=== PATIENT | female | born 1950 | race Caucasian/White ===

== ENCOUNTER 2023-10-03 10:02 | Emergency (ER) | payer MEDICARE, OTHER, SELFPAY ==
--- NOTE | ~2023-10-03 | CT_ITS ---
EXAMINATION: CT HEAD WITHOUT CONTRAST CLINICAL INFORMATION: Intermittent left-sided facial droop COMPARISON: None available. TECHNIQUE: Contiguous axial imaging was performed from the skull base to vertex without intravenous administration of contrast. This CT examination was performed using dose optimization techniques as appropriate, variously including the following: *Automated exposure control *Adjustment of mA and/or kV according to patient size (this includes techniques or standardized protocols for targeted exams where dose is matched to indication/reason for exam; i.e. extremities or head) *Use of iterative reconstruction technique DLP: 533.03 mGy-cm FINDINGS: Ventricles, sulci and cisterns are normal for the patient's age. There is no midline shift, no abnormal intra- or extra- axial fluid accumulation. Tee and white matter differentiation is normal. Bone window images show no evidence of skull fracture. CT/CT head/brain wo IV con IMPRESSION: 1. Normal CT scan of the brain. 2. No intracranial hemorrhage or skull fracture is seen. 3. No evidence of space occupying lesion could be found. 4. The current plain CT scan of the brain shows no diagnostic evidence of acute cerebral infarction.
--- NOTE | ~2023-10-03 | CT_ITS ---
EXAMINATION: CT ANGIOGRAM HEAD CT ANGIOGRAM NECK CLINICAL INFORMATION: Left upper extremity numbness. Left-sided facial numbness. COMPARISON: CT head from 10/03/2023. TECHNIQUE: Initial noncontrast mud cleaner operator imaging of the head and neck was performed. Comparison is made with noncontrast head CT from earlier today. Test bolus sequences followed by intravenous administration 70 mL of Omnipaque 350. Helical imaging was performed in the axial plane from the aortic arch to the skull vertex. Delayed postcontrast imaging of the head was also performed. The data was processed at the chief radiologic technologist's workstation for generation of MIP sequences. Angled MIPs and volume rendered reformatted images were also generated at an offline 3D workstation. Stenoses are assessed in accordance with NASCET criteria unless otherwise indicated. This CT examination was performed using dose optimization techniques as appropriate, variously including the following: *Automated exposure control. *Adjustment of mA and/or kV according to patient size (this includes techniques or standardized protocols for targeted exams where dose is matched to indication/reason for exam; i.e. extremities or head). *Use of iterative reconstruction technique. DLP: 1276 mGy-cm FINDINGS: CT Head: There is no evidence of acute intracranial hemorrhage or edematous territorial infarction. Tee-white matter differentiation is preserved. A few foci of hypoattenuation in the periventricular and deep white matter are consistent with mild microangiopathy. The ventricles are normal in morphology and size. No evidence for obstructive hydrocephalus. No abnormal mass effect or midline shift. No extra-axial fluid collections. No pathologic intra-axial enhancement or regional oligemia. No acute soft tissue or osseous abnormalities. Mild mucosal thickening of the paranasal sinuses. The mastoid air cells and middle ear cavities are clear. CT Neck: The thyroid gland and remaining cervical soft tissues are within normal limits. No significant abnormalities of the cervical spine. CT Upper Chest: The visualized lung apices and upper mediastinum are within normal limits. Neck CTA: Aortic Arch: Normal contour and caliber. Classic 3 vessel branching pattern of the aortic arch. Great Vessel Origins: No significant stenosis of the branch origins. Right Common Carotid Artery: No focal stenosis or occlusion. Cervical Right Internal Carotid Artery: Normal opacification without focal stenosis or occlusion. Left Common Carotid Artery: No focal stenosis or occlusion. Cervical Left Internal Carotid Artery: Normal opacification without focal stenosis or occlusion. Cervical Right Vertebral Artery: Dominant. No focal stenosis or occlusion. Cervical Left Vertebral Artery: No focal stenosis or occlusion. Brain CTA: Intracranial Internal Carotid Arteries: Mild calcific atherosclerotic disease of the intracranial internal carotid arteries without occlusion or flow-limiting stenosis. Right Anterior Cerebral Artery: Normal A1 segment. Normal opacification of the distal CHRISTO segments. Left Anterior Cerebral Artery: Normal A1 segment. Normal opacification of the distal CHRISTO segments. Anterior Communicating Artery: Normal. Right Middle Cerebral Artery: Normal M1 segment of the MCA without focal stenosis or occlusion. Normal arborization of the distal segments. Left Middle Cerebral Artery: Normal M1 segment of the MCA without focal stenosis or occlusion. Normal arborization of the distal segments. Right Vertebral Artery: Normal V4 segment. The posterior inferior cerebellar artery is not well opacified; however, there is no CT evidence of acute occlusion. Left Vertebral Artery: The V4 segment largely terminates as the posterior inferior cerebellar artery. Basilar Artery: Normal without focal stenosis or occlusion. Normal appearance of the proximal superior cerebellar arteries. Right Posterior Cerebral Artery: Normal P1 segment. Normal opacification of the distal FLIGHT MECHANIC segments. Left Posterior Cerebral Artery: Normal P1 segment. Normal opacification of the distal FLIGHT MECHANIC segments. Normal opacification of the superior sagittal, straight, transverse, and sigmoid sinuses. CT/CT angio head neck IMPRESSION: 1. No evidence of acute intracranial hemorrhage or edematous territorial infarction. Mild underlying microangiopathy. 2. CTA of the head and neck without proximal occlusion or flow-limiting stenosis.
[2023-10-03 10:10] VITALS: BP 154/78; PULSE 94; RESP 18; TEMP 36.8; O2SAT 99; BMI 24.2
[2023-10-03 10:19] VITALS: BP 131/58; PULSE 77; RESP 14; TEMP 36.7; O2SAT 96
--- NOTE | 2023-10-03 11:05 | ECG_ITS ---
Test Reason : NEURO Blood Pressure : / mmHG Vent. Rate : 068 BPM Atrial Rate : 068 BPM P-R Int : 178 ms QRS Dur : 102 ms QT Int : 380 ms P-R-T Axes : 065 040 049 degrees QTc Int : 404 ms Sinus rhythm with Premature atrial complexes Otherwise normal ECG No previous ECGs available Referred By: Nina Au Electronically Signed By:Navarro Andujar
[2023-10-03 11:11] LABS: MANUAL DIFF FLAG NO
[2023-10-03 11:12] LABS: Basophils Percent Auto 0.8 % (0-2); Eosinophils Absolute Auto 0.1 X10*3/uL (0.0-0.4); Eosinophils Percent Auto 1.9 % (0-4); Hematocrit 39.3 % (37.0-47.0); Hemoglobin 13.3 g/dl (12.0-16.0); Imm Gran Abs Auto 0.01 X10*3/uL (0.00-0.03); Imm Gran Pct Auto 0.2 % (0.0-0.4); Lymphocytes Absolute Auto 1.4 X10*3/uL (1.2-4.9); Lymphocytes Percent Auto 25.9 % (20-40); Mean Corpuscular HGB Conc 33.8 g/dl (31.0-35.0); Mean Corpuscular Hemoglobin 32.4 pg (27.0-33.0); Mean Corpuscular Volume 95.6 fL (80.0-98.0); Mean Platelet Volume 9.7 fL (9.4-12.3); Monocytes Absolute Auto 0.5 X10*3/uL (0.1-1.2); Monocytes Percent Auto 9.5 % (2-11); Neutrophils Absolute Auto 3.3 x10*3/uL (2.0-8.3); Neutrophils Percent Auto 61.7 % (45-73); Platelet Count 219 X10*3/uL (160-400); Red Blood Count 4.11 X10*6/uL (4.20-5.50); Red Cell Distribution Width 12.8 % (11.0-16.0); White Blood Count 5.3 X10*3/uL (4.8-10.8)
--- NOTE | 2023-10-03 11:19 | ED.NEUROSD ---
HPI - Neuro Symptoms/Deficit General Chief Complaint: Neuro Symptoms/Deficit Stated Complaint: L arm tingling/numbness Time Seen by Provider: 10/03/23 10:39 Source: patient and family Mode of arrival: ambulatory Limitations: no limitations History of Present Illness ED Provider: Tete WHITE HPI Narrative: This is a 73-year-old female with no significant medical history presenting with intermittent left upper extremity numbness/tingling and left facial numbness/tingling all of which have been ongoing since August. She reports last night she had an episode that scared her, she reports she started having some numbness in her left hand around the thumb region and it radiated up towards her shoulder and then eventually to her face. She reports numbness is just decreased sensation however she is still able to feel. She reports it has not complete numbness. No associated weakness with this. She states that this last a few minutes and then resolves. She reached out tone nurse [facility] who advised her to come in today to get a workup for stroke. Patient does not have a history of this in the past. She does report she is outside frequently and about a month ago she realized that she had a small red dot on her left upper extremity around her thumb webspace region however this resolved. Patient also states she got bit by a tick before and she thinks she may have had Lyme disease. Patient denies chest pain, shortness of breath, nausea, vomiting, weakness, headache, vision changes, dizziness. NIH stroke scale 0 GCS 15 Related Data Allergies Allergy/AdvReac Type Severity Reaction Status Date / Time NARCOTICS Allergy Unknown NAUSEA, Uncoded 10/03/23 10:14 SEVERE HEADACHES Review of Systems Review of Systems: Yes all other systems are reviewed and are negative PMFSH Past Medical History Attestation statement: The following information was validated with the patient. Source: old records reviewed and nursing notes reviewed Social History Social History Alcohol intake: current Alcohol intake frequency: 0-2 drinks per day Alcohol type: wine Smoked in Last 30 Days: No Use of substances other than those prescribed or required for medical reasons: No Advance Directives: No Advance Directives Information Provided: Yes Do you have a plan to hurt others: No Plan Physical Exam Vital Signs: Vital Signs: Last Vital Signs Temp 98.0 F 10/03/23 10:19 Pulse 71 10/03/23 13:43 Resp 14 10/03/23 13:43 BP 158/73 H 10/03/23 13:43 Pulse Ox 98 10/03/23 13:43 O2 Del Method Room Air 10/03/23 13:43 BMI result Body Mass Index 24.2 vss Appearance: Alert.? Oriented X3.? No acute distress.? Head: Normocephalic, atraumatic, no step-offs or deformities Eyes: Pupils equal, round and reactive to light.? Neck: Normal inspection.? Neck supple.? CVS: Normal heart rate and rhythm.? Pulses normal.? Respiratory: No respiratory distress.? Breath sounds normal.? Abdomen: Soft and nontender.? Skin: Skin warm and dry.? Normal skin color.? Normal skin turgor.? Extremities: No lower extremity edema.? No calf ttp. 5/5 strength to bilateral upper and lower extremitie Neuro: Oriented X 3.? No motor deficit.? No sensory deficit. CN 2-12 intact . Normal zdjilu-[id number]-skrz, vxto-gl-fgyj steady tandem gait normal coordination. Negative Romberg and pronator drift Course Reevaluation(s) Reevaluation #1: CBC unremarkable. Chemistry no acute findings requiring intervention. Normal CRP. Normal troponin, EKG nonischemic. No chest pain or shortness of breath. Unlikely ACS or PE. Lyme test pending tick panel pending. CT head no intracranial hemorrhage or skull fracture seen. No evidence of space-occupying lesion. The current plain CT of the brain shows no diagnostic evidence of acute cerebral infarction. Normal CT of head. CTA pending. Time: 15:24 Reevaluation #2: Delay in obtaining results for CTA reached out to radiology information systems specialist. Time: 15:25 Reevaluation #3: Still waiting for results Time: 15:43 Medications Administered Discontinued Medications Generic Name Dose Route Start Last Admin Trade Name Freq PRN Reason Stop Dose Admin Iohexol 100 ml 10/03/23 12:52 10/03/23 12:52 Iohexol 350 Mg/Ml 100 Ml Infus..Btl IV 10/03/23 12:53 70 ml ONCE ONE Administration Medical Decision Making Medical Decision Making MDM Narrative: 73-year-old female presents with intermittent numbness to left upper extremity and left side of face. Physical exam benign. NIH stroke scale 0. Concerns for carpal versus cubital tunnel syndrome versus neuropathy versus insect bite versus Lyme disease. Unlikely stroke, posterior stroke, TIA. No signs of meningitis or encephalitis Plan labs, imaging. Differential Diagnosis Differential Diagnoses: The differential diagnosis associated with the presentation includes Concerns for carpal versus cubital tunnel syndrome versus neuropathy versus insect bite versus Lyme disease. Unlikely stroke, posterior stroke, TIA. No signs of meningitis or encephalitis Admission/Observation Consideration of admission/observation: Escalation of care including admission/observation considered possible Consult Healthcare Provider Dr. Cabrera agrees w/ plan. Recommends EKG and CTA which I ordered. No other recommendations Lab Data MDM Lab Attestation statement: I reviewed the patient's lab results. 10/03/23 11:06 10/03/23 11:06 Labs: Lab Results 10/03/23 10/03/23 Range/Units 11:06 11:37 WBC 5.3 (4.8-10.8) X10*3/uL RBC 4.11 L (4.20-5.50) X10*6/uL Hgb 13.3 (12.0-16.0) g/dl Hct 39.3 (37.0-47.0) % MCV 95.6 (80.0-98.0) fL MCH 32.4 (27.0-33.0) pg MCHC 33.8 (31.0-35.0) g/dl RDW 12.8 (11.0-16.0) % Plt Count 219 (160-400) X10*3/uL MPV 9.7 (9.4-12.3) fL Immature Gran % (Auto) 0.2 (0.0-0.4) % Neut % (Auto) 61.7 (45-73) % Lymph % (Auto) 25.9 (20-40) % [place] % (Auto) 9.5 (2-11) % Eos % (Auto) 1.9 (0-4) % Baso % (Auto) 0.8 (0-2) % Lymph # (Auto) 1.4 (1.2-4.9) X10*3/uL [place] # (Auto) 0.5 (0.1-1.2) X10*3/uL Eos # (Auto) 0.1 (0.0-0.4) X10*3/uL Baso # (Auto) 0.0 (0.0-0.2) X10*3/uL Abs Immat Gran (auto) 0.01 (0.00-0.03) X10*3/uL Absolute Neuts (auto) 3.3 (2.0-8.3) x10*3/uL Absolute Nucleated RBC 0.000 (0.0-0.012) X10*3/uL Nucleated RBC % (auto) 0.0 (0.0-0.2) /100WBC ESR 6 (0-20) MM/HR PT 10.7 L (11.1-13.3) SEC INR 0.9 (0.9-1.1) Sodium 140 (135-145) mmol/L Potassium 3.8 (3.3-5.1) mmol/L Chloride 109 H (96-108) mmol/L Carbon Dioxide 25 (22-29) mmol/L Anion Gap 10 L (12-20) BUN 13 (9-16) mg/dL Creatinine 0.77 (0.5-1.4) mg/dL Estim Creat Clear Calc 55.3 Estimated GFR > 60 Random Glucose 91 (60-115) mg/dL Calcium 9.5 (8.4-10.2) mg/dL Total Bilirubin 0.8 (0.0-1.0) mg/dL AST 19 (5-31) U/L ALT 19 (0-31) U/L Alkaline Phosphatase 70 (39-117) U/L Troponin I High Sens < 2.7 (<3.5-17.0) ng/L C-Reactive Protein < 0.10 (< or = 0.50) mg/dL Total Protein 6.5 (6.5-8.0) g/dL Albumin 4.0 (3.5-5.0) g/dL Independent Interpretation I performed an independent interpretation of an: EKG (Vent. Rate : 068 BPM Atrial Rate : 068 BPM P-R Int : 178 ms QRS Dur : 102 ms QT Int : 380 ms P-R-T Axes : 065 040 049 degrees QTc Int : 404 ms Sinus rhythm with Premature atrial complexes Otherwise normal ECG No previous ECGs available) and CT Scan (Vent. Rate : 068 BPM Atrial Rate : 068 BPM P-R Int : 178 ms QRS Dur : 102 ms QT Int : 380 ms P-R-T Axes : 065 040 049 degrees QTc Int : 404 ms Sinus rhythm with Premature atrial complexes Otherwise normal ECG No previous ECGs available ) Radiology Impression Discussion of test interpretation with radiology: I have reviewed the radiologist's reading. Chronic Conditions Patient?s care impacted by: Other (? Possible Lyme disease) Critical Care Time Critical Care Time Critical Care Time: No Discharge Plan Discharge Clinical Impression: Left arm numbness, Facial numbness Patient Disposition: Home, Self-Care Instructions: Paresthesia (ED) Additional Instructions: Take your medications as prescribed. If you were prescribed antibiotics today, it is important that you take your medication to their entirety, do not skip any doses, do not finish them early. Follow-up with your primary care provider this week. Return to the emergency department with new or worsening symptoms. Such as fevers, chills, chest pain, shortness of breath, nausea, vomiting, dizziness, headache, vision changes, lethargy In case of emergency call 911 Your tick panel is pending. We will call you if results are positive. Please follow-up with neurology CT/CT head/brain wo IV con IMPRESSION: 1. Normal CT scan of the brain. 2. No intracranial hemorrhage or skull fracture is seen. 3. No evidence of space occupying lesion could be found. 4. The current plain CT scan of the brain shows no diagnostic evidence of acute cerebral infarction. Referrals: [facility] [place] Neuro/Sleep [Provider Group] - 3 days Parminder Nobles III, MD [Primary Care Provider] - 2 days Print Language: Bulgarian
[2023-10-03 11:26] LABS: Alanine Aminotransferase 19 U/L (0-31); Alkaline Phosphatase 70 U/L (39-117); Anion Gap 10 (12-20); Aspartate Amino Transferase 19 U/L (5-31); Bilirubin Total 0.8 mg/dL (0.0-1.0); Blood Urea Nitrogen 13 mg/dL (9-16); Calcium 9.5 mg/dL (8.4-10.2); Carbon Dioxide 25 mmol/L (22-29); Chloride 109 mmol/L (96-108); Creatinine Clr Calc Pharmacy 55.3; Estimated Glomerular Filt Rate > 60; Glucose Random 91 mg/dL (60-115); INTERNATIONAL NORM RATIO 0.9 (0.9-1.1); Potassium 3.8 mmol/L (3.3-5.1); Prothrombin Time 10.7 SEC (11.1-13.3); Sodium 140 mmol/L (135-145); Total Protein 6.5 g/dL (6.5-8.0)
--- NOTE | 2023-10-03 11:32 | PC.NURSE ---
Pt comes to ED today by the direction of her PCP. She reports she has had three incidents of gradual progressive numbness to her LUE and L lower face. Each incident self resolved with 10 minutes or less and occur without any other sxs. Pt denies numbness today, states last incident was last night. Prior to that was late August and 09/26/23. VSS and afebrile. Pt is A&Ox3 and is pleasant. Labs pending.
[2023-10-03 12:07] LABS: Troponin-I High Sensitivity < 2.7 ng/L (<3.5-17.0)
[2023-10-03 12:41] LABS: C Reactive Protein < 0.10 mg/dL (< or = 0.50)
[2023-10-03] MEDS: iohexoL 350 MG/ML 100 ML INFUS..BTL IV (12:52)
[2023-10-03 13:19] LABS: Erythrocyte Sedimentation Rate 6 MM/HR (0-20)
[2023-10-03 13:43] VITALS: BP 158/73; PULSE 71; RESP 14; O2SAT 98
[2023-10-03 16:24] VITALS: BP 147/63; PULSE 68; RESP 16; O2SAT 100
--- NOTE | 2023-10-03 16:24 | PC.NURSE ---
Neuros intact awaits dispo and CT scan results
[2023-10-03 18:10] VITALS: BP 162/83; PULSE 60; RESP 20; TEMP 36.4; O2SAT 100
[2023-10-03 18:56] VITALS: BP 162/83; PULSE 60; RESP 20; TEMP 36.4; O2SAT 100
[2023-10-04 17:38] LABS: Lyme Abs Screen <0.90 index
[2023-10-05 06:38] LABS: A. Phagocytphilium DNA,RT-PCR NOT DETECTED (NOT DETECTED); Babesia Microti DNA, RT-PCR NOT DETECTED (NOT DETECTED); Borrelia Miyamotoi,DNA RT-PCR NOT DETECTED (NOT DETECTED); E.Chaffeensis DNA RT-PCR NOT DETECTED (NOT DETECTED); Lyme(Borrelia ssp)DNA RT-PCR NOT DETECTED (NOT DETECTED)
== END 2023-10-03 18:56 | disposition home or self-care (01) ==
PROVIDERS: Physician Assistant; Emergency Provider Emergency Medicine; PCP Internal Medicine
DX: R20.0 Anesthesia of skin (principal); R40.2410 Glasgow coma scale score 13-15, unspecified time; R94.31 Abnormal electrocardiogram [ECG] [EKG]; R29.810 Facial weakness; Z79.899 Other long term (current) drug therapy
CPT/HCPCS: 36415; 70450; 70496; 70498; 80053; 84484; 85025; 85610; 85652; 86140; 86617; 86618; 87468; 87469; 87478; 87484; 87798; 93005; 99284; 99285; Q9967

== ENCOUNTER → 2023-10-03 11:05 | Outpatient (BNV) | payer MEDICARE, OTHER, SELFPAY | PROVIDERS: Emergency Provider Emergency Medicine; PCP Internal Medicine; Visit Provider Internal Medicine Cardiovascular Disease | DX: I49.1 Atrial premature depolarization (principal) | CPT/HCPCS: 93010 ==

== ENCOUNTER 2024-04-17 10:57 | Outpatient (AMB) | payer OTHER, SELFPAY ==
--- NOTE | 2024-04-17 10:59 | A.OFFVIS_ITS ---
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 In August 2023 she started having episodes of tingling and numbness that started in her left thumb and radiated to all her fingers and involved the whole arm and lower face. The whole episode lasted few minutes to 20 minutes. she had 2 episodes where it radiated to left upper chest.The episodes in frequency and had 5-6 episodes in a day. she went to [place] [facility]. she has CT and CTA ( head and neck ) was normal. She was tested for LYme which was negative. MRI brain with and without elisabet - mild white matter changes. she saw a chiropractor in September 2023 - she was given some exercises and has resolved her episodes. No episodes for past 4mths. she denies weakness. No neck pain , no back pain. she has arthritis. she denies any vision changes, denies diplopia, vertigo, dysarthria etc PFSH Medical History (Updated 04/17/24 @ 12:03 by Monserrat Lofton MD) FH: cerebral aneurysm Tingling of left arm and left side of face Neck pain Thyroid disease Hyperlipidemia HTN (hypertension) Family History (Updated 04/17/24 @ 11:34 by KEENA Rosenberg) Sister Aneurysm Son Aneurysm Sister Aneurysm Father Aneurysm COPD (chronic obstructive pulmonary disease) Dementia HTN (hypertension) Mother Osteoporosis HTN (hypertension) Brother Brain bleed Daughter Uterine cancer Social History Alcohol intake: current Alcohol intake frequency: 0-2 drinks per day Alcohol type: wine Physical Exam Vital Signs: Last Vital Signs BP 134/74 04/17/24 11:05 Const General: cooperative, healthy appearing, comfortable and no acute distress Nutritional Appearance: average body habitus Orientation/consciousness: patient oriented x3 Eyes Pupils: Equal, round and reactive pupils present Neuro Other: Neck - tightness , tight trapezius General: patient oriented x3, gait normal, tone normal, moves all extremities and no focal motor deficits Cranial nerves: Yes Facial sensation intact/muscles of mastication intact, Yes Equal, round and reactive pupils present, Yes Bilaterally intact EOM present, Yes Nystagmus not present, Yes Normal facial strength present, Yes Midline tongue present, Yes Symmetric palate elevation present and Yes Ability to bilaterally elevate shoulders present Cognition (Neuro): normal cognition Gait exam (Neuro): Normal gait present Motor exam (neuro): 5/5 motor strength present throughout and Normal motor muscle tone present throughout Deep tendon reflexes (DTR's): Right triceps reflex intensity grade: 2+, Left triceps reflex intensity grade: 2+, Rt Biceps (C5, C6): 2+, Left biceps reflex intensity grade: 2+, Right brachioradialis reflex intensity grade: 2+, Left brachioradialis reflex intensity grade: 2+, Right patellar reflex intensity grade: 2+ and Left patellar reflex intensity grade: 2+ Coordination: [id number] test normal Assessment & Plan Assessment & Plan (1) Tingling of left arm and left side of face: Comment: , related to radicuopathy ?episodic - last epsiode 4 mths ago Code(s): R20.2 - Paresthesia of skin Category: Medical (2) FH: cerebral aneurysm: Code(s): Z82.49 - Family history of ischemic heart disease and other diseases of the circulatory system Category: Medical Plan Reviewed CTA , CT MRI brain No evidence of stroke or aneurysm C spine xR - follow up as needed Orders: Orders XR cervical spine 3V Today M54.2 - Cervicalgia Coding Level of Care Code New Pt Level 4 (13649) Diagnoses Tingling of left arm and left side of face R20.2 FH: cerebral aneurysm Z82.49
[2024-04-17 11:05] VITALS: BP 134/74
--- OUTSIDE RECORDS SUMMARY | 2024-04-17 12:32 | XMS_ITS | Clinical Summary ---
Author Organization [facility] Address [address] [place] [address] Care Team Providers Care Certified Coder Name Role Phone Parminder Nobles MD Primary Care Provider [phone] Allergies Active Allergy Reactions Criticality Noted Date Comments Ciprofloxacin Diarrhea 08/31/2005 Clindamycin Hcl Headache 08/31/2005 Codeine 08/12/2005 diploplia Erythromycin Diarrhea 08/12/2005 abd pain Zoster Vaccine Live 12/16/2013 Medications Medication Sig Dispensed Refills Start Date End Date Status levothyroxine (SYNTHROID, LEVOTHROID) 75 mcg tablet Take 1 tablet (75 mcg total) by mouth 1 (one) time each day. 06/06/2018 Active diclofenac (VOLTAREN) 1 % topical gel Apply 4 g topically. 09/22/2021 Active cycloSPORINE (Restasis) 0.05 % ophthalmic emulsion Administer 1 drop into both eyes 2 (two) times a day. 05/25/2018 Active estradioL (Yuvafem) 10 mcg tablet vaginal tablet INSET 1 TABLET VAGINALLY TWO TIMES A WEEK AT BEDTIME 09/13/2017 Active amLODIPine (NORVASC) 5 mg tablet TAKE 1 TABLET BY MOUTH DAILY 30 tablet 03/14/2024 Active atorvastatin (LIPITOR) 20 mg tablet TAKE 1 TABLET BY MOUTH AT BEDTIME 30 tablet 03/14/2024 Active Active Problems Problem Noted Date Diagnosed Date Hypothyroidism 06/30/2018 Essential hypertension 04/05/2018 Hyperlipidemia 04/04/2017 Osteoarthritis of right knee 04/02/2016 Osteopenia 11/24/2012 Overview (06/03/2023): 12/2018- lumbar spine -1.9, left hip -2.4. Osteopenia T score -2.5 left hip, 06/16/2016. 12/2018- lumbar spine -1.9, left hip -2.4. Osteopenia T score -2.5 left hip, 06/16/2016. 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 Lemus, 02/21/[address] Lemus, 02/21/2006 Allergic rhinitis 08/12/2005 Immunizations Name Administration Dates Next Due Influenza Quadravalent, 0.5m l (Fluzone High-dose) 65yo and older 12/26/2019 [facility] SARS-CoV-2 COVID-19, mRNA, LNP-S, preservative free 06/15/2020 Pneumococcal polysaccharide 23 valent (Pneumovax 23) 2yo and older 05/04/2019 Td Tetanus diptheria (Tdvax) 7yo and older 04/04 Zoster Live 12/13/2013 Surgical History Surgery Date Site/Laterality Comments TONSILLECTOMY PROCEDURE: HISTORICAL TONSILLECTOMY OTHER SURGICAL HISTORY 2005 PROCEDURE: ---- OTHER ----; COMMENT: thyroglosall duct cyst COLONOSCOPY 2001 PROCEDURE: HISTORICAL COLONOSCOPY; COMMENT: neg COLONOSCOPY 2013 PROCEDURE: TX COLONOSCOPY FLX DX W/COLLJ SPEC WHEN PFRMD; COMMENT: normal BREAST BIOPSY Left PROCEDURE: BX BREAST; PERC NEEDLE CORE W/IMAG GUID; COMMENT: neg Medical History Medical History Date Comments Nontoxic uninodular goiter DX:No ntoxic uninodular goiter Allergic rhinitis, cause unspecified DX:Allergic rhinitis, cause unspecified Family History Medical History Relation Name Comments Melanoma Brother 1 melanoma Other: scc Brother 2 Squamous cell carcinoma Brother 2 Uterine cancer Daughter age 32 Stroke Father dementia, decea sed Other: Osteoporosis Mother Breast cancer Neg Hx Colon cancer Neg Hx Ovarian cancer Neg Hx Relation Name Status Comments Brother 1 Brother 2 Daughter Father Mother Social History Tobacco Use Types Packs/Day Years Used Date Smoking Tobacco: Never Smokeless Tobacco: Never Alcohol Use Standard Drinks/Week Comments Yes 0 (1 standard drink = 0.6 oz pur e alcohol) Sex and Gender Information Value Date Recorded Sex Assigned at Not on file Gender Identity Not on file Sexual Orientation Not on file Obstetrics History Last Filed Vital Signs Vital Sign Reading Time Taken Comments Blood Pressure 134/68 01/26/2024 9:00 AM EDT Pulse 70 10/10/2023 8:01 AM EDT Temperature - - Respiratory Rate - - Oxygen Saturation - - Inhaled Oxygen Concentration - - Weight 64 kg (141 lb) 01/26/2024 9:00 AM EDT Height 162.6 cm (5' 4 ) 01/26/2024 9:00 AM EDT Body Mass Index 24.2 01/26/2024 9:00 AM EDT Plan of Treatment Upcoming Encounters Date Type Department Care Team (Late st Contact Info) Description 04/18/2024 9:30 AM EST Office Visit Adult Medicine [address] [address] Parminder Nobles MD [address] [place] [phone] 07/31/2024 8:50 AM EDT Appointment Radiology Department - [address] [phone] Health Maintenance Due Date Last Done Comments Zoster Vaccines (1 of 2) 02/07/2014 12/13/2013 Hepatitis C Screening 05/01/2020 Medicare Annual Wellness Visit 05/01/2020 Social Influencers of Health Screening 05/01/2020 Colorectal Cancer Screening: Colonoscopy 08/07/2023 08/06/2013 Depression Screening 10/06/2023 10/05/2022 Falls Risk Assessment 10/06/2023 10/05/2022 COVID-19 Vaccine ( season) 2023 07/08/2021, 12/20/2020, 06/15/2020, Additional history exists Influenza Vaccine (#1) 2023 3, 12/24/2021, 12/20/2020, Additional history exists RSV Immunization Patients 60+ Years Old (1 - 1-dose 75+ series) 2024 Hypertension/CHF/CAD Annual BMP Blood Test 11/10/2024 11/11/2023 Breast Cancer Screening 07/20/2025 07/21/19 24, 07/12/2022, 05/19/2021, Additional history exists DTaP,Tdap,and Td Vaccines (3 - Td or Tdap) 04/04/2027 04/04/2017, 2006 Cholesterol Screening (Lipid Panel) 11/10/2028 11/11/2023, 04/11/2023 Osteoporosis Screening (Bone Density Screening) 06/27/2031 06/26/2021, 01/17/2019, 06/16/2016 Pneumococcal Vaccine: 65+ Years Completed 05/04/2019, 10/07/2017 HIB Vaccines Aged Out No longer eligi ble based on patient's age to complete this topic HPV Vaccines Aged Out No longer eligi ble based on patient's age to complete this topic Hepatitis A Vaccines Aged Out No long er eligible based on patient's age to complete this topic Hepatitis B Vaccines Aged Out No long er eligible based on patient's age to complete this topic IPV Vaccines Aged Out No longer eligi ble based on patient's age to complete this topic MMR Vaccines Aged Out No longer eligi ble based on patient's age to complete this topic Meningococcal ACWY Vaccine Aged Out N o longer eligible based on patient's age to complete this topic RSV Immunization Patients Under 20 months Aged Out No longer eligible based on patient's age to complete this topic Varicella Vaccines Aged Out No longer eligible based on patient's age to complete this topic Procedures Procedure Name Priority Date/Time Associated Diagnosis Comments SCREENING MAMMOGRAPHY BI 2-VIEW BREAST INC CAD Routine 07/21/2023 8:54 AM EDT Encounter for screening mammogram for malignant neoplasm of breast DXA BONE DENSITY STUDY 1+ SITS AXIAL SKEL Routine 06/26/2021 11:05 AM EDT Encounter for screening for osteoporosis from Last 3 Months or Most Recently Relevant to Health Maintenance Results * SCREENING MAMMOGRAPHY BI 2-VIEW BREAST INC CAD (07/21/2023 8:54 AM EDT) Anatomical Region Laterality Modality Radiographic Kinga ging 07/12/2022 2:21 PM EDT Narrative 07/21/2023 6:00 PM EDT This is a summary report. The complete report is available in the patient's medical record. If you cannot access the medical record, please contact the sending organization for a detailed fax or copy. Full field digital screening 2D C views and tomosynthesis mammography, reviewed with CAD and compared to previous. The breast tissue is dense, limiting sensitivity. ??No suspicious mass, architectural distortion or suspicious calcifications are identified. IMPRESSION: : Dense breast tissue, limiting the sensitivity of mammography. ??No mammographic evidence of malignancy. BIRADS 1-Negative; N. 5 year breast cancer risk assessment 2.1 % Lifetime breast cancer risk assessment 5.2 % Breast cancer risk category Low (<15%) Procedure Note Esther Morocho MD - 11/14/2023 This is a summary report. The complete report is available in thepatient's medical record. If you cannot access the medical record, pleasecontact the sending organization for a detailed fax or copy. Full field digital screening 2D C views and tomosynthesis mammography,reviewed with CAD and compared to previous. The breast tissue is dense,limiting sensitivity. No suspicious mass, architectural distortion orsuspicious calcifications are identified. IMPRESSION: : Dense breast tissue, limiting the sensitivity of mammography. Nomammographic evidence of malignancy. BIRADS 1-Negative; N. 5 year breast cancer risk assessment 2.1 % Lifetime breast cancer risk assessment 5.2 % Breast cancer risk category Low (<15%) Parminder Nobles MD IMG XR PROCEDURES * DXA BONE DENSITY STUDY 1+ SITS AXIAL SKEL (06/26/2021 11:05 AM EDT) Anatomical Region Laterality Modality Bone Densitometr y 09/09/2020 11:3 0 AM EDT Narrative 06/26/2021 5:07 PM EDT BONE DENSITY ? Lumbar Spine T-score is -1.9 ?? (SD relative to 20-29 y/o adult) Z-score is +0.3 ??(SD relative to age matched peers) This is consistent with osteopenia by criteria defined by the WHO. Left Hip T-score is -2.2 Z-score is -0.3 This is consistent with osteopenia by criteria defined by the WHO. Comparison exam(s): no statistically significant change in the bone density of the hip and lumbar spine when compared to most recent bone density examination ?? Confidence level is +/-95%. Impression: Based on the World Health Organization criteria, Kalani Lozoya should be classified as having osteopenia. The [facility] Department of Internal Medicine recommends using National Osteoporosis Foundation (NOF) guidelines in treatment decisions related to osteoporosis. NOF guidelines suggest considering treatment for postmenopausal women and men aged 50 or older presenting with the following: History of hip or vertebral fracture. T-score less than or equal to -2.5 (DXA) at the femoral neck, total hip, or spine, after appropriate evaluation to exclude secondary causes. Low bone mass (T-score between -1.0 and -2.5 at the femoral neck or spine) AND a 10-year probability of a hip fracture greater than or equal to 3% OR a 10-year probability of a major osteoporosis-related fracture greater than or equal to 20% based on the [place]-adapted WHO algorithm Please note that all treatment decisions require clinical judgment and consideration of individual patient factors, including patient preferences, co-morbidities, previous drug use, risk factors not captured in the FRAX model (e.g., frailty, falls, vitamin D deficiency, increased bone turnover, interval significant decline in bone density) and possible under- or over-estimation of fracture risk by FRAX. Procedure Note Esther Morocho MD - 03/16/2022 BONE DENSITY Lumbar Spine T-score is -1.9 (SD relative to 20-29 y/o adult) Z-score is +0.3 (SD relative to age matched peers) This is consistent with osteopenia by criteria defined by the WHO. Left Hip T-score is -2.2 Z-score is -0.3 This is consistent with osteopenia by criteria defined by the WHO. Comparison exam(s): no statistically significant change in the bonedensity of the hip and lumbar spine when compared to most recent bonedensity examination Confidence level is +/-95%. Impression: Based on the World Health Organization criteria, Kalani Aguilar be classified as having osteopenia. The [facility] Department of Internal Medicine recommendsusing National Osteoporosis Foundation (NOF) guidelines in treatmentdecisions related to osteoporosis. NOF guidelines suggest consideringtreatment for postmenopausal women and men aged 50 or older presentingwith the following: History of hip or vertebral fracture. T-score less than or equal to -2.5 (DXA) at the femoral neck, total hip,or spine, after appropriate evaluation to exclude secondary causes. Low bone mass (T-score between -1.0 and -2.5 at the femoral neck or spine)AND a 10-year probability of a hip fracture greater than or equal to 3% ORa 10-year probability of a major osteoporosis-related fracture greaterthan or equal to 20% based on the [place]-adapted WHO algorithm Please note that all treatment decisions require clinical judgment andconsideration of individual patient factors, including patientpreferences, co-morbidities, previous drug use, risk factors not capturedin the FRAX model (e.g., frailty, falls, vitamin D deficiency, increasedbone turnover, interval significant decline in bone density) and possibleunder- or over-estimation of fracture risk by FRAX. Parminder Nobles MD IMG DXA PROCEDURES from Last 3 Months or Most Recently Relevant to Health Maintenance Care Teams Certified Coder Relationship Specialty Start Date End Date Parminder Nobles MD PCP - General Internal Medicine 09/09/20
--- OUTSIDE RECORDS SUMMARY | 2024-04-17 12:34 | XMS_ITS | Patient Health Record ---
Author Organization [employer] [facility] Address [address] [place] [address] Care Team Providers Care Sustainability Manager Name Role Phone Parminder Nobles Primary Care Provider Unavailabl e Allergies Allergen (clinical drug ingredient) Drug/Non Drug Allergy documented on EMR Reaction Allergy Type Onset Date Status ciprofloxacin Cipro Unknown Drug Allergy Act sarah Zostavax Unknown Drug Allergy Active codeine Codeine Unknown Drug Allergy Active clindamycin Clindamycin Unknown Drug Allergy Act sarah erythromycin Erythromycin Unknown Drug Allergy A ctive Reason For Referral No Information Medications Medication SIG (Take, Route, Frequency, Duration) Notes Start Date End Date Status Fosamax 70 MG 1 tablet 30 minutes before the first food, beverage or medicine of the day with plain water Orally 1 time per week Active cycloSPORINE 0.05 % 1 drop into affected eye Ophthalmic daily Active Yuvafem 10 MCG 1 tablet Vaginal Active Atorvastatin Calcium 20 MG 1 tablet Oral ly Once a day Active Norvasc 5 MG 1 tablet Orally Once a day Active Levothyroxine Sodium 75 MCG 1 tablet in the morning on an empty stomach Orally Once a day Active Plan Of Treatment No Information Insurance Providers Payer Name Payer Address Payer Phone Subscriber Number Group Number Insured Name Patient Relationship to Insured Coverage Start Date Coverage End Date [employer] of [place] s [address] [place] [phone] [id number] Kalani Lozoya Self - patient is the insured [facility] [address] [place] [address] [phone] [id number] Kalani Lozoya Self - patient is the insured Medical (General) History Medical History History ICD Code Personal history of other malignant neop lasm of skin Z85.828 Hypothyroidism, unspecified E03.9 Essential hypertension I10 Hyperlipidemia, unspecified E78.5 Unilateral primary osteoarthritis, right knee M17.11 Other specified disorders of bone densit y and structure, unspecified site 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
== END 2024-04-17 11:33 | disposition home or self-care (01) ==
PROVIDERS: PCP Internal Medicine; Visit Provider Psychiatry & Neurology Neurology
DX: R20.2 Paresthesia of skin (principal); Z82.49 Family history of ischemic heart disease and other diseases of the circulatory system
CPT/HCPCS: 99204